=== PATIENT | male | born 1975 | race Two or more races ===

== ENCOUNTER 2025-04-06 21:11 | Emergency (ER) | payer BC, SELFPAY ==
[2025-04-06 21:12] VITALS: BP 156/85; PULSE 77; RESP 18; TEMP 36.8; O2SAT 95
[2025-04-06 21:14] VITALS: PULSE 80; RESP 16; O2SAT 98; BMI 39.0
--- NOTE | 2025-04-06 21:23 | EKG_ITS ---
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
--- NOTE | 2025-04-06 21:24 | PD.EDABDPN ---
ED Abdominal Pain RME/HPI General Chief Complaint: Abdominal Pain Stated complaint: ABDOMINAL PAIN Time seen by provider: 04/06/25 21:20 Arrival date/time: 04/06/25 21:11 RME / HPI RME / HPI narrative: Dr. Lazcano?s Main ED Evaluation: 49yo male presenting with onset of left posterior flank pain x 3 days [employer] with recent radiation to the LLQ/LUQ with nausea, but no emesis. No fever, chills, urgency, frequency, dysuria, or hematuria. Also notes a recent onset of pruritic erythematous patch to the anterior left upper abdomen. PSH unremarkable. Social history is unremarkable. Related Data Previous Rx's ?Medication ?Instructions ?Recorded ciprofloxacin HCl 500 mg tablet 500 mg PO BID 7 days #14 tabs 04/07/25 (Cipro) gabapentin 100 mg capsule 100 mg PO BID 7 days #14 caps 04/07/25 hydrocodone 5 mg-acetaminophen 325 1 tab PO Q8H PRN pain #20 tabs 04/07/25 mg tablet valacyclovir 1 gram tablet 1,000 mg PO TID 7 days #21 tabs 04/07/25 (Valtrex) Allergies Allergy/AdvReac Type Severity Reaction Status Date / Time No Known Allergies Allergy Verified 04/06/25 21:13 Review of Systems Review of Systems Systems Reviewed: All systems reviewed, normal except as documented Past Medical History Past Medical History CARDIAC: Negative Congestive Heart Failure RESPIRATORY: Negative Chronic Obstructive Pulmonary Disease (COPD) GENITOURINARY: Negative Renal Disease ENDOCRINE: Negative Diabetes Mellitus Type 1 or Diabetes Mellitus Type 2 Social History SMOKING STATUS: Never smoker ED Exam Narrative Physical exam: GENERAL APPEARANCE: alert and oriented x 4, well-developed, well-nourished, nontoxic, no acute distress VITALS: All vitals were reviewed and the pulse ox is 95% on room air, which is normal according to my interpretation. HEENT: Normocephalic, atraumatic; pupils equal, round, reactive to light; EOMI; mucous membranes pink, moist; oropharynx clear NECK: Supple LUNGS: CTABL; no wheezes, no rales, no rhonchi HEART: Regular rate, regular rhythm; normal S1, S2; no murmurs ABDOMEN: non distended; soft, mild tenderness from the LLQ extending to the left flank, no guarding, no rebound; no masses, no organomegaly, no hernia BACK: no CVA tenderness EXTREMITIES: atraumatic; no edema NEUROLOGIC: awake; alert and oriented x4; cranial nerves II-XII grossly intact; no focal sensory or motor deficits PSYCHIATRIC: appropriate mood and affect SKIN: warm, dry, normal color; cluster of vesicles on erythematous base to the LUQ, nontender, no weeping, no induration Course Quality Measures none Orders Category Date Time Status EKG (ED ONLY) *Do not use* NOW Care 04/06/25 21:[address] abdomen pelvis wo con Stat Exams 04/06/25 22:34 Completed EKG (ED Only) Stat Exams 04/06/25 21:23 Draft CBC Stat Lab 04/06/25 22:14 Completed Comprehensive Metabolic Panel Stat Lab 04/06/25 21:35 Completed Drug Screen,Urine Stat Lab 04/06/25 22:00 Completed Lipase Stat Lab 04/06/25 21:35 Completed Magnesium Stat Lab 04/06/25 21:35 Completed Partial Thromboplastin Time Stat Lab 04/06/25 22:14 Completed Prothrombin Time with INR Stat Lab 04/06/25 22:14 Completed Urinalysis, C/S if Indicated Stat Lab 04/06/25 22:00 Completed Acyclovir [Zovirax] Med 04/07/25 01:09 Once 800 mg PO X1 ONE Ketorolac Inj [Toradol Inj] Med 04/07/25 00:52 Discontinued 30 mg IVP X1 ONE Morphine* Inj Med 04/06/25 21:23 Discontinued 4 mg IVP X1 ONE Prochlorperazine Inj [Compazine Inj] Med 04/06/25 21:23 Discontinued 5 mg IV X1 ONE cefTRIAXone/D5w 1gm IV premix [Rocephin/D5w 1gm IV Med 04/07/25 01:09 Ordered premix] 1 gm in 50 ml IV X1 Vital Signs Vital signs: Vital Signs Temperature 98.2 F 04/06/25 21:12 Pulse Rate 77 04/06/25 21:12 Respiratory Rate 18 04/06/25 21:12 Blood Pressure 156/85 H 04/06/25 21:12 Pulse Oximetry (%) 95 04/06/25 21:12 Oxygen Delivery Method Room Air 04/06/25 21:12 Abdominal Pain MDM MDM Narrative MDM Narrative:: Scribe Attestation: 04/06/25 - Laura Acevedo am scribing for and in the presence of Dr. Lazcano. 49yo male presenting with onset of left posterior flank pain x 3 days [employer] with recent radiation to the LLQ/LUQ with nausea, but no emesis. No fever, chills, urgency, frequency, dysuria, or hematuria. Please see PE findings. Lab markers demonstrated normal CBC. Chemistries showed mildly elevated glucose, otherwise unremarkable. UA with few RBCs, but no signs of infection or crystal formation. IV established. Patient treated with saline and low dose narcotic analgesics/antiemetics with [id number] relief. CT abdomen pelvis demonstrates minimal perinephric stranding, no calculi noted. Patient received emp abx despite essentially negative urine. Further evaluation suggests possibility of early Zoster given above noted clinical findings. Will treat empirically for early UTI and Zoster. Close follow-up anticipated. Precaution instructions issued. Patient data External records reviewed:: [facility] previous records (Per chart review, patient has no relevant previous ED visits.) and EMS form Clinical information provided by:: patient Social determinants that could affect healthcare access:: none Patient has the following chronic illnesses:: none How is presenting disease/condition affected by chronic disease/condition?: no chronic disease Evaluation data The following diagnostics were reviewed and interpreted by me:: lab results, radiology exam(s) and EKG tracing(s) Lab and/or radiology exams considered but not ordered:: none Interpretation Summary: EKG done at 2140, sinus rhythm, rate of 74, no acute pathological ST segment changes, occasional PACs, normal intervals, left axis deviation, according to my interpretation. [facility] Report [id number] Birthdate: 1975 Age/Sex: 49 / M Location: [facility] Attending Dr: Ordering Physician: Sundeep Young DO Date of Service: 04/06/25 Procedure(s): CT abdomen pelvis wo con Accession Number(s): [id number] cc: Sundeep Young DO; Isidro Ceja MD; Zhanna Camargo MD~ Examination: CT abdomen and pelvis without contrast. Coronal 3-D reconstructions. Sagittal 2-D reconstructions. Date and time of exam: April 06, 2025, 11:14 p.m. INDICATIONS: Flank pain today CTDI: vol (mGy): 15.9 DLP: (mGycm): 1038 Technique: Axial images of the abdomen have been obtained, 3 mm slice thickness Intravenous contrast material has not been administered. Low dose protocols were performed. One or more of the following dose reduction techniques were used; automated exposure control, adjustment of the mA and/or KV according to patient size, use of iterative reconstruction technique. Findings: Fatty infiltration throughout the liver no focal liver or splenic lesions No gallstones No pancreatic or adrenal mass Minimal perinephric stranding No renal or ureteral calculi, no hydronephrosis Aorta normal size Normal appendix Mild to moderate lumbar disc narrowing IMPRESSION: No renal or ureteral calculi, no hydronephrosis Normal appendix No bladder mass or bladder calculi Dictated By: Isidro Ceja MD Signed By: <Electronically signed by Isidro Ceja MD in [place]> 04/06/25 2358 Medications / Prescriptions Medications or Prescriptions considered but not ordered:: none Medication administrations:: Medication Administration History Acyclovir (Acyclovir 800 Mg Tablet) 800 mg PO X1 ONE Stop: 04/07/25 01:10 Ceftriaxone Sodium/Dextrose (Rocephin/D5w 1gm Iv Premix) 1 gm in 50 mls @ 100 mls/hr IV X1 ONE Stop: 04/07/25 01:38 Discontinued Medications Ketorolac Tromethamine (Ketorolac Inj 30 Mg/Ml Vial) 30 mg IVP X1 ONE Stop: 04/07/25 00:53 Last Admin: 04/07/25 01:07 Dose: 30 mg Documented By: CRUZ Morphine Sulfate (Morphine Sulf Inj 4 Mg/Ml Vial) 4 mg IVP X1 ONE Stop: 04/06/25 21:24 Last Admin: 04/06/25 21:46 Dose: 4 mg Documented By: CRUZ Prochlorperazine Edisylate (Prochlorperazine Inj 5 Mg/Ml Vial 2 Ml) 5 mg IV X1 ONE; Protocol Stop: 04/06/25 21:24 Last Admin: 04/06/25 22:10 Dose: 5 mg Documented By: CRUZ see above Consultations Consultation(s) initiated? (list below): No Diagnosis Differential diagnosis abdominal pain: other (renal colic, UTI, pyelonephritis) Most likely diagnosis given after review of the tests above:: see clinical impression below Admission Indicated Admission indicated?: not indicated Admission Request Was there a request for admission?: No Disposition Plan Disposition Plan: Discharge Discharge Attestation Discharge Attestation: The patient and all family members were given an opportunity to ask questions and understood the discharge instructions. Discharge instructions specifically effects, indications for sooner follow up or return to the emergency department, and the expected course of current diagnosis. Patient condition: Stable Discharge Plan Plan Patient Disposition: HOME (Self Care) Discharge Disposition comment: Stable Prescriptions/Referrals Prescriptions/Med Rec: New valacyclovir [Valtrex] 1 gram tablet 1,000 mg PO TID 7 Days Qty: 21 0RF gabapentin 100 mg capsule 100 mg PO BID 7 Days Qty: 14 0RF hydrocodone-acetaminophen 5-325 mg tablet 1 tab PO Q8H MDD 3 tab PRN (Reason: pain) Qty: 20 0RF ciprofloxacin HCl [Cipro] 500 mg tablet 500 mg PO BID 7 Days Qty: 14 0RF Referrals: Zhanna Camargo MD [Primary Care Provider, Family Practice] - In 1 week Problem List Clinical Impression: Pyelonephritis, Herpes zoster Patient/Caregiver Discharge Instructions Discharge Activity: activity as tolerated Education Materials: Shingles (Herpes Zoster), ED Pyelonephritis, Male (Adult) Additional Instructions: Medication as directed. Follow-up with primary care doctor for repeat urinalysis in 1 week. Print Language: Bhutanese Stand Alone Forms: Eva Award Info., Patient Portal Info Letter
[2025-04-06] MEDS: MORPHINE SULF INJ 4 MG/ML VIAL IVP (21:46)
[2025-04-06] MEDS: PROCHLORPERAZINE INJ 5 MG/ML VIAL 2 ML IV (22:10)
[2025-04-06 22:11] LABS: Collection Type, Urine Clean Catch; WBC,Urine 0 /hpf (0-5)
[2025-04-06 22:13] LABS: Alanine Aminotransferase 40 U/L (10-49); Albumin, Serum 4.6 gm/dL (3.5-5.0); Albumin/Globulin Ratio 1.4 (1.2-2.2); Alkaline Phosphatase 63 U/L (46-116); Anion Gap 12 (7-16); Aspartate Amino Transferase 31 U/L (0-34); BUN/Creatinine Ratio 6 Ratio (12-20); Bilirubin,Total 0.6 mg/dL (0.3-1.2); Blood Urea Nitrogen < 5 mg/dL (9-23); Calcium 9.8 mg/dL (8.3-10.6); Calcium (Corrected) 9.8 mg/dL (8.5-10.1); Carbon Dioxide 21.1 mMol/L (20.0-31.0); Chloride 103 mMol/L (98-107); Creatinine (Component) 0.9 mg/dL (0.6-1.3); Estimated Creatinine Clearance 134.8 mL/min (>60); Globulin 3.4 gm/dL (2.3-3.5); Glucose 126 mg/dL (74-106); Lipase 28 U/L (12-53); Magnesium 1.9 mg/dL (1.6-2.6); Osmolality,Calculated 271 (275-295); Potassium 4.3 mMol/L (3.4-5.1); Sodium 136 mMol/L (136-145); Total Protein 8.0 gm/dL (5.7-8.2); eGFR > 60 See Note
[2025-04-06 22:20] LABS: Bilirubin,Urine Negative (Negative); Blood,Urine Negative (Negative); Clarity,Urine Clear (Clear/Hazy); Color,Urine Lt-Yellow (Lt Yel-Yel); Culture Indicated,Urine Not Indicated; Glucose, Urine Negative (Negative); Ketones,Urine Negative (Negative); Leukocyte Esterase,Urine Negative (Negative); Nitrite,Urine Negative (Negative); PH,Urine 6.5 (5.0-7.0); Protein,Urine Negative (Neg - Trace); RBC,Urine 4 /hpf (0-3); Specific Gravity,Urine 1.013 (1.001-1.035); Squamous Epithelial Cell,Urine < 1 /hpf (0-5); Urobilinogen,Urine Negative mg/dL (0.0-1.0)
[2025-04-06 22:34] LABS: Basophils # (Auto) 0.0 Thou/mm3 (0.0-0.2); Basophils % (Auto) 0 % (0-2.5); Eosinophils # (Auto) 0.0 Thou/mm3 (0.0-0.5); Eosinophils % (Auto) 0 % (0-10); Hematocrit 45.5 % (41.0-53.0); Hemoglobin 15.8 g/dL (13.5-16.0); Immature Granulocytes Auto 0.03 Thou/mm3 (0.00-0.00); Lymphocytes # (Auto) 2.3 Thou/mm3 (1.0-4.8); Lymphocytes % (Auto) 25 % (10-50); Mean Corpuscular HGB Conc 34.7 g/dl (31.0-37.0); Mean Corpuscular Hemoglobin 30.3 pg (25.0-35.0); Mean Corpuscular Volume 87 fL (80-100); Monocytes # (Auto) 0.8 Thou/mm3 (0.0-0.8); Monocytes % (Auto) 9 % (0-12); Neutrophils # (Auto) 6.1 Thou/mm3 (1.8-7.7); Neutrophils % (Auto) 65 % (37-80); Nucleated Red Blood Cell # 0.00 Thou/mm3 (0.00-0.00); Nucleated Red Blood Cell % 0 /100 WBC (0); Platelet Count 242 Thou/mm3 (140-440); RDW Standard Deviation 40.1 fL (35.1-43.9); Red Blood Count 5.22 Miln/mm3 (4.50-5.90); White Blood Count 9.3 Thou/mm3 (3.8-10.6)
[2025-04-06 22:34] LABS: Amphetamine/Methamp Scrn,U Negative (Negative); Barbiturate Screen,Urine Negative (Negative); Benzodiazepines Screen,Urine Negative (Negative); Benzoylecgonine Screen, Ur Negative (Negative); Fentanyl Screen,Urine Negative (Negative); Opiate Screen,Urine Positive (Negative); THC Screen,Urine Negative (Negative)
--- NOTE | 2025-04-06 22:34 | XR_ITS ---
Examination: CT abdomen and pelvis without contrast. Coronal 3-D reconstructions. Sagittal 2-D reconstructions. Date and time of exam: April 06, 2025, 11:14 p.m. INDICATIONS: Flank pain today CTDI: vol (mGy): 15.9 DLP: (mGycm): 1038 Technique: Axial images of the abdomen have been obtained, 3 mm slice thickness Intravenous contrast material has not been administered. Low dose protocols were performed. One or more of the following dose reduction techniques were used; automated exposure control, adjustment of the mA and/or KV according to patient size, use of iterative reconstruction technique. Findings: Fatty infiltration throughout the liver no focal liver or splenic lesions No gallstones No pancreatic or adrenal mass Minimal perinephric stranding No renal or ureteral calculi, no hydronephrosis Aorta normal size Normal appendix Mild to moderate lumbar disc narrowing IMPRESSION: No renal or ureteral calculi, no hydronephrosis Normal appendix No bladder mass or bladder calculi
[2025-04-06 22:58] LABS: INR 1.0 (0.9-1.3); Partial Thromboplastin Time 27.3 Seconds (22.0-36.0); Prothrombin Time 10.8 Seconds (9.0-12.2)
[2025-04-06 23:04] VITALS: BP 165/89; PULSE 78; RESP 17; TEMP 36.7; O2SAT 98
[2025-04-07] MEDS: KETOROLAC INJ 30 MG/ML VIAL IVP (01:07)
[2025-04-07 01:20] VITALS: BP 175/98; PULSE 69; RESP 19; TEMP 37.1; O2SAT 95
[2025-04-07] MEDS: ACYCLOVIR 800 MG TABLET PO (01:27)
[2025-04-07] MEDS: cefTRIAXone/D5w 1gm IV premix 1 GM/50 ML BAG IV (01:27)
[2025-04-07 01:55] VITALS: BP 173/97; PULSE 69; RESP 15; TEMP 37.1; O2SAT 98
== END 2025-04-07 02:11 | disposition home or self-care (01) ==
PROVIDERS: Emergency Provider Emergency Medicine; PCP Family Medicine
DX: N12 Tubulo-interstitial nephritis, not specified as acute or chronic (principal); B02.9 Zoster without complications; I49.3 Ventricular premature depolarization
CPT/HCPCS: 36415; 74176; 80053; 80307; 81001; 83690; 83735; 85025; 85610; 85730; 93005; 96365; 96375; 99284; J0696; J0780; J1885; J2270; A9270